=== PATIENT | female | born 1935 | race Asian ===

== ENCOUNTER 2017-07-06 09:03 | Observation (INO) | END 2017-07-07 15:40 | disposition home health service (06) ==

== ENCOUNTER 2018-04-12 07:30 | Observation (INO) | payer MEDICARE, OTHER ==
[~2018-04-12] VITALS: Ht 152.4 cm; Wt 49.9 kg
[~2018-04-12 07:30] MED LIST: ACETAMINOPHEN 500 MG TAB PO SCH; AMLO2.5T2 PO; ATOR10TA65 PO; CALC1TAB32 PO; CEFAZOLIN 1 GM/50 ML (PMX) 50 ML IVPB SCH; CHOL400T10 PO; DEXAMETHASONE 4 MG/ML 1 ML INJ IV SCH; GABA300C16 PO; HIP PAIN COCKTAIL (CEFUROXIME) INJ SCH; LACTATED RINGER'S 1,000 ML IV* SCH; LANSOPRAZOLE 30 MG CAP PO SCH; METF500T24 PO; ONDANSETRON 4 MG INJ IV SCH; TRANEXAMIC ACID 1,000 MG in NS 100 ML INTRA-OP X1 IVPB SCH; TRANEXAMIC ACID 1,000 MG in NS 100 ML PRE-OP X1 IVPB SCH; VALS160T20 PO; oxyCODONE (CR) 10 MG TAB [oxyCONTIN] PO SCH
[2018-05-03] VITALS (29 sets, daily range): BP systolic 104–159; BP diastolic 46–71; PULSE 68–96; RESP 12–18; Ht 152.4 cm; Wt 49.9 kg
[2018-05-03] MEDS ORDERED: TRANEXAMIC ACID 1,000 MG in NS 100 ML PRE-OP X1 IVPB ONE (06:00)
[2018-05-03] MEDS ORDERED: oxyCODONE (CR) 10 MG TAB [oxyCONTIN] PO ONE (06:00)
[2018-05-03] MEDS ORDERED: VANCOMYCIN 1 GM (PMX) 250 ML IVPB ONE (06:00)
[2018-05-03] MEDS ORDERED: ACETAMINOPHEN 500 MG TAB PO ONE (06:00)
[2018-05-03] MEDS ORDERED: ONDANSETRON 4 MG INJ IV ONE (06:00)
[2018-05-03] MEDS ORDERED: DEXAMETHASONE 4 MG/ML 1 ML INJ IV ONE (06:00)
[2018-05-03] MEDS ORDERED: LANSOPRAZOLE 30 MG CAP PO ONE (06:00)
[2018-05-03] MEDS ORDERED: LACTATED RINGER'S 1,000 ML IV* SCH (06:00)
[2018-05-03] MEDS ORDERED: TRANEXAMIC ACID 1,000 MG in NS 100 ML INTRA-OP X1 IVPB ONE (06:00)
[2018-05-03] MEDS ORDERED: SEVOFLURANE 15 MIN ONE (07:00)
--- NOTE | 2018-05-03 10:36 | PREAC ---
Date/Time of Note Date/Time of Note DATE: 05/03/18 TIME: 10:33 Anesthesia Eval and Record Evaluation Time Pre-Procedure Interview DATE: 05/03/18 TIME: 10:33 Age 82 Sex female NPO: 8 hrs Preoperative diagnosis Rt knee osteoarthritis Planned procedure Rt total knee replacement Past Medical History Past Medical History: Includes Cardio: HTN, Dyslipidemia Endo: Diabetes Surgery & Anesthesia Issues No known issue Meds Anticoagulation: No Beta Luis Enrique within 24 hr: No Reason Beta Luis Enrique not given: Pt. not on B-Luis Enrique Reported Medications Cholecalciferol* (Vitamin D*) 400 Unit Tablet, 400 UNIT PO DAILY, TAB 07/05/17 Calcium Carbonate/Vitamin D3 (Os-Vikash 500-Vit D3 200 Caplet) 1 Each Tablet, 1 EACH PO BID, TAB 07/05/17 Gabapentin* (Gabapentin*) 300 Mg Capsule, 300 MG PO BID, #60 CAP 07/05/17 Metformin Hcl* (Metformin Hcl*) 500 Mg Tablet, 1000 MG PO WITH BREAKFAST DINNE, #30 TAB 07/05/17 Atorvastatin Calcium (Atorvastatin Calcium) 10 Mg Tablet, 10 MG PO QHS, #30 TAB 18 Amlodipine Besylate* (Norvasc*) 2.5 Mg Tablet, 2.5 MG PO DAILY, TAB 18 Valsartan* (Diovan*) 160 Mg Tablet, 160 MG PO DAILY, TAB 07/05/17 Current Medications Lactated Ringer's 1,000 ml @ 125 mls/hr Q8H IV* ; Start 05/03/18 at 06:00; Stop 05/03/18 at 13:59 Meds reviewed: Yes Allergies Coded Allergies: Penicillins (Verified Allergy, Unknown, RASH HIVES SWELLING, 07/06/17) Allergies Reviewed: Yes Labs/Studies Labs Reviewed: Reviewed by anesthesiologist test: N/A Studies: ECG Pre-procedure Exam Last vitals BP:110/56, pulse;78, spo2;100%, T:98,8 Airway: Adequate mouth opening, Adequate thyromental dist Mallampati: Mallampati II Teeth: Normal Lung: Normal Heart: Normal ASA Physical Status ASA physical status: 3 Emergency: None Planned Anesthetic General/MAC: LMA Planned Pain Management Sub-arachniod narcotics Pre-operative Attestations Prior to commencing anesthesia and surgery, the patient was re-evaluated, there was verification of: *The patient's identity *The results of appropriate recent lab work and preoperative vital signs *The above evaluation not changing prior to induction *Anesthetic plan, risk benefits, alternative and complications discussed with patient/family; questions answered; patient/family understands, accepts and wishes to proceed. ANAMIKA CARRILLO MD May 03, 2018 10:36
[2018-05-03] MEDS ORDERED: LOSA100T3 PO (11:29)
--- NOTE | 2018-05-03 11:42 | PDOCDIS ---
Discharge Instructions DIAGNOSIS Discharge Diagnosis Right knee osteroarthritis CONDITION [id number] Patient Condition: [id number] Good HOME CARE INSTRUCTIONS: [id number] Diet Instructions: Ejusq7b Regular ACTIVITY: [id number] Activity Restrictions: [id number] Slowly Increase Activity Rest between Activity Avoid heavy lifting No Sexual Activity Do not Drive Do not operate Machinery Do not operate Power Tool Avoid Heavy Housework Keep Limb Elevated (2-3 pillows under the right foot only so that the leg is in full extension while resting. ) Weight Bearing (weight bear as tolerated with front wheeled walker) [id number] Bathing Restrictions: [id number] Shower (Prineo dressing to remain on until seen postoperatively. Okay to shower with this dressing. No bathing or submersion in water.) FOLLOW UP/APPOINTMENTS Follow-up Plan Follow up at postoperative appt. provided to you at your preoperative exam. SARA BURT PA-C May 03, 2018 11:42
--- NOTE | 2018-05-03 11:52 | HPN ---
Date/Time of Note Date/Time of Note DATE: 05/03/18 TIME: 11:52 Interval H&P Admission Note Pt. seen H&P reviewed: No system changes CAR COLINDRES MD May 03, 2018 11:52
[2018-05-03] MEDS ORDERED: POLYMYXIN B 500000 UNIT INJ ONE (11:56)
[2018-05-03] MEDS ORDERED: oxyCODONE 5 MG TAB PO PRN ×2 (12:00)
[2018-05-03] MEDS ORDERED: NALOXONE (0.4 MG/ML) INJ IV PRN (12:00)
[2018-05-03] MEDS ORDERED: BISACODYL 10 MG SUPP PR PRN (12:00)
[2018-05-03] MEDS ORDERED: MAGNESIUM HYDROXIDE 30ML CUP PO PRN (12:00)
[2018-05-03] MEDS ORDERED: NA PHOSPHATE/BIPHOS 133 ML ENEMA PR PRN (12:00)
[2018-05-03] MEDS ORDERED: ASPIRIN 81 MG TAB PO ONE (12:00)
[2018-05-03] MEDS ORDERED: DIPHENHYDRAMINE 50 MG INJ IV PRN ×2 (12:00→15:00)
[2018-05-03] MEDS ORDERED: BETHANECHOL 25 MG TAB PO PRN (12:00)
[2018-05-03] MEDS ORDERED: DOCUSATE SODIUM 100 MG CAP PO ONE (12:00)
[2018-05-03] MEDS ORDERED: NACL 0.9% 3 ML SYG IV SCH (12:00)
[2018-05-03] MEDS ORDERED: SENNA/DOCUSATE NA (8.6MG/50MG) TAB PO PRN (12:00)
[2018-05-03] MEDS ORDERED: MIDAZOLAM 1 MG/ML 2 ML INJ ONE (12:17)
[2018-05-03] MEDS ORDERED: morphine SULFATE/PF (10 MG/10 ML) INJ ONE (12:17)
[2018-05-03] MEDS ORDERED: FENTAnyl 50 MCG/ML VIAL ONE (12:18)
[2018-05-03] MEDS ORDERED: BACITRACIN 50000 UNITS INJ ONE (12:24)
[2018-05-03] MEDS ORDERED: HIP PAIN COCKTAIL VANCO INJ SCH ×7 (12:30)
[2018-05-03] MEDS ORDERED: VANCOMYCIN 1 GM (PMX) 250 ML ONE (12:52)
[2018-05-03] MEDS ORDERED: ETOMIDATE 20 MG INJ ONE (14:28)
[2018-05-03] MEDS ORDERED: LIDOCAINE 2% (SDV) 5 ML INJ ONE (14:28)
[2018-05-03] MEDS ORDERED: CEFAZOLIN 1 GM INJ ONE (14:28)
[2018-05-03] MEDS ORDERED: ONDANSETRON 4 MG INJ ONE (14:28)
--- NOTE | 2018-05-03 14:29 | SIPON ---
Date/Time of Note Date/Time of Note DATE: 05/03/18 TIME: 14:26 Operative Report Preoperative Diagnosis Right Knee Osteoarthritis Postoperative Diagnosis Same Operation/Procedure Performed Right Total Knee Arthroplasty Surgeon Gibson Colindres MD executive assistant to president Silvano Fierro Second assist: SARA BURT PA-C Anesthesia: spinal Estimated blood loss: 250 - 300 ml's Transfusion Required none Specimen Bone Grafts/Implants none Complications none GIBSON COLINDRES MD May 03, 2018 14:29
--- NOTE | 2018-05-03 14:32 | OPR ---
Date/Time of Note Date/Time of Note DATE: 05/03/18 TIME: 14:30 Operative Report Free Text/Dictation DATE OF OPERATION: May 03, 2018 SURGEON: Car Colindres MD CAN WORKER: Silvano SCHWARTZ CAN WORKER: Edin Armendariz PREOPERATIVE DIAGNOSIS: Right knee osteoarthritis. POSTOPERATIVE DIAGNOSIS: Right knee osteoarthritis. PROCEDURES PERFORMED: Right total knee arthroplasty, CPT code 21915. ANESTHESIOLOGIST: Dr. Villa ANESTHESIA: Spinal. ESTIMATED BLOOD LOSS: 300 mL. COMPLICATIONS: None. SPECIMENS: Resected bone. DISPOSITION: PACU in stable condition. TOURNIQUET TIME: 46 minutes at 250 mmHg. IMPLANT USED: Isidro and Nephew size 2 Christina tibial baseplate, size 3 narrow posterior stabilized Oxinium femur, size 10 high flexion polyethylene, size 35 mm patella. INDICATION FOR PROCEDURE: This is an 82-year-old female with end-stage osteoarthritis of the right knee who had failed nonoperative management. Risks, benefits, alternatives of surgical intervention were discussed with the patient and informed consent was obtained. The risks of surgery include but are not limited to infection, deep venous thrombosis, pulmonary embolism, damage to nerves and blood vessels, numbness around incision site, stiffness of knee, need for total knee manipulation under anesthesia, need for blood transfuion, heart attack, stroke, risks associated with anesthesia, implant loosening, wear of prosthesis, need for revision surgery, and . DESCRIPTION OF PROCEDURE: The patient was met in the preoperative suite. The correct operative site was confirmed and marked. The patient was then brought into operating room. After induction of anesthesia, the patient was placed in the supine position on the operating room table. A tourniquet was applied to right upper thigh. The right lower extremity was prepped and draped in the usual sterile fashion. Before starting, a timeout was taken to identify the correct operative site and confirm preoperative antibiotics consisting of 1 g of IV Ancef, along with 1 g of tranexamic acid were administered. At this point, the right leg was elevated and exsanguinated with an Esmarch and tourniquet was then insufflated for the above noted time. A midline incision was made and median parapatellar arthrotomy was then completed. The lateral patellar reti nacular ligaments were released. A sleeve of tissue was released from the medial proximal tibia. The cruciate ligaments and the menisci were then excised. At this point, the custom distal femur cutting block was then pinned and 9.5 mm was resected from the distal femur. The 4-in-1 cutting block, size 3 was then placed. An jeff wing was used to confirm that notching of the anterior cortex of the femur would not occur. The anterior and posterior condylar cuts were completed followed by the anterior and posterior chamfer cuts. The osteophytes were then removed with a rongeur. At this point, the tibia was subluxed anteriorly. Appropriate retractors were placed. The custom tibial cutting block was then pinned. The drop was used to ensure the correct alignment. Approximately 11 mm was resected off the lateral tibial plateau and 4 mm off the medial tibial plateau. Osteophytes were then removed. At this point, the flexion extension gaps were checked with a 9 mm gap checker bakery products and noted to be loose in both. Next, trial 3 narrow femur was then pinned and the box cut was then completed. The tibia was then subluxed anteriorly and measured to size 2. The tibial tray was then pinned and a keel was then punched. The trial components were placed with a 10 mm polyethylene and noted to have full extension and greater than 120 degrees of flexion. The patella was then subluxed laterally and sized to 20 mm. Approximately, 6 mm was resected. The patellar was sized to 35 mm. The button was placed and noted to have excellent patellar tracking. The trial components were removed. All bony surfaces were pulse lavaged and dried. The appropriate size components were then cemented and the knee was held in extension with a 10 mm trial polyethylene until the cement cured. Once the cement had cured, the trial polyethylene was removed and the appropriate size polyethylene was then placed. The tranexamic acid was redosed. The cocktail was then injected. The extensor mechanism was closed using #1 Stratafix and the subcutaneous tissue with 2-0 Vicryl and the skin with 4-0 Monocryl. Steri-Strips were applied along with a sterile dressing. There were no complications. The patient was transferred to PACU in stable condition. POSTOPERATIVE CARE: The patient will be weightbearing as tolerated. The patient will work with physical therapy, and will receive two additional doses of IV antibiotics along with aspirin 81 mg p.o. b.i.d. for 6 weeks. Upon discharge, patient will follow up in my office within 2 weeks postoperatively. CAR COLINDRES MD 2, 2019 14:32
--- NOTE | 2018-05-03 14:36 | NUR ---
RECEIVED FROM OR VIA BED S/P RT. TKR. DRESSING DRY AND INTACT. POLAR CARE APPLIED. SCD APPLIED TO BOTH LEGS. PEDAL PULSE PALPABLE FOOT. WARM TO TOUCH. NO SENSATION AT PRESENT BUT MOVEMENT NOTED ON LOWER LEGS S/P DURAMORPH 0.2MG. IV INFUSING IN RT. AC #20 ANGIOCATH
--- NOTE | 2018-05-03 14:43 | PAC ---
Date/Time of Note Date/Time of Note DATE: 05/03/18 TIME: 14:41 Post-Anesthesia Notes Post-Anesthesia Note Last documented vital signs Vital Signs Date Temp Pulse Resp B/P (MAP) Pulse Ox O2 O2 Flow FiO2 Time Delivery Rate 05/03/18 98.2 14:41 05/03/18 90 18 159/71 96 Room Air 12:09 (100) Activity: WNL Respiratory function: WNL Cardiovascular function: WNL Mental status: Baseline Pain reasonably controlled: Yes Hydration appropriate: Yes Nausea/Vomiting absent: Yes Comments BP:126/54, pulse:98, spo2:100%, T:98,9 ANAMIKA CARRILLO MD May 03, 2018 14:42
[2018-05-03] MEDS ORDERED: FENTAnyl 50 MCG/ML VIAL IV PRN (15:00)
[2018-05-03] MEDS ORDERED: ONDANSETRON 4 MG INJ IV PRN (15:00)
[2018-05-03] MEDS ORDERED: HYDROmorphONE 1 MG/5 ML IV SYRINGE IV PRN ×2 (15:00)
[2018-05-03] MEDS ORDERED: LABETALOL HCL 20MG INJ IV PRN (15:00)
[2018-05-03] MEDS ORDERED: METOCLOPRAMIDE 10 MG INJ IV PRN (15:00)
[2018-05-03] MEDS ORDERED: MEPERIDINE 25 MG INJ IV PRN (15:00)
[2018-05-03] MEDS ORDERED: hydrALAzine 20 MG INJ IV PRN (15:00)
--- NOTE | 2018-05-03 15:08 | CONS ---
Date/Time of Note Date/Time of Note DATE: 05/03/18 TIME: 15:02 Assessment/Plan Assessment/Plan Assessment/Plan Assessment and plan: 82-year-old female who comes in for right total knee replacement. # Right knee replacement: Again secondary to osteoarthritis, surgery occurred earlier today. -Continue current medications as ordered by primary team including pain control medications, physical therapy, labs #Type 2 diabetes: Monitor sugars for now, consider sliding scale insulin #Hypertension: Presently stable -Monitor, continue current medication #Pseudogout: No present issues -Monitor #Inflammatory bowel disease: Monitor for now #Gastritis: Continue PPI We will continue to follow along with you. Results 24hrs Laboratory Tests Test 05/03/18 12:19 05/03/18 14:43 Bedside Glucose 83 139 Consultation Date/Type/Reason Admit Date/Time May 03, 2018 at 11:12 Hx of Present Illness 82-year-old female past medical history of right knee also arthritis, type 2 diabetes, hypertension, esophageal candidiasis, inflammatory bowel disease, gastritis, pseudogout, history of tubular adenoma, who underwent right total knee replacement earlier today. Patient had been having pain symptoms prior to this operation in her right knee secondary to osteoarthritis. Presently is in recovery room, denies any upper or lower GI bleeding, nausea vomiting, fever chills, diarrhea constipation, chest pain or shortness of breath. Past Medical History Medications Current Medications Sodium Chloride 1,000 ml @ 80 mls/hr [id number] IV ; Start 05/03/18 at 11:42 IV Flush (NS 3 ml) 3 ml PER PROTOCOL IV ; Start 05/03/18 at 12:00 Oxycodone HCl (Roxicodone) 15 mg Q4H PRN PO PAIN; Start 05/03/18 at 12:00 Oxycodone HCl (Roxicodone) 10 mg Q4H PRN PO PAIN; Start 05/03/18 at 12:00 Oxycodone HCl (Roxicodone) 5 mg Q4H PRN PO PAIN; Start 05/03/18 at 12:00 Ondansetron HCl (Zofran Inj) 4 mg Q4H PRN IV NAUSEA AND/OR VOMITING; Start 05/04/18 at 12:00 Vancomycin HCl 250 ml @ 125 mls/hr Q24H IVPB ; Start 05/03/18 at 18:00; Stop 05/03/18 at 19:59 Celecoxib (Celebrex) 100 mg BID PO ; Start 05/04/18 at 09:00 Gabapentin (Neurontin) 300 mg BID PO ; Start 05/03/18 at 21:00 Pantoprazole (Protonix Tab) 40 mg DAILY@06 PO ; Start 05/05/18 at 06:00 Docusate Sodium (Colace) 200 mg BID PO ; Start 05/04/18 at 09:00; Stop 05/07/18 at 08:59 Simethicone (Mylicon) 80 mg TID PRN PO DISTENSION/GAS/BLOATING; Start 05/03/18 at 12:00 Senna/Docusate Sodium (Senokot-S) 2 tab BID PRN PO CONSTIPATION; Start 05/03/18 at 12:00 Magnesium Hydroxide (Milk Of Mag) 30 ml HS PRN PO CONSTIPATION; Start 05/03/18 at 12:00 Bisacodyl (Dulcolax Supp) 10 mg DAILY PRN [place] CONSTIPATION; Start 05/03/18 at 12:00 Sodium Biphosphate/ Sodium Phosphate (Fleet Enema) 133 ml DAILY PRN [place] CONSTIPATION; Start 05/03/18 at 12:00 Diphenhydramine HCl (Benadryl) 25 mg Q4H PRN IV ITCHING; Start 05/03/18 at 12:00 Naloxone HCl (Narcan) 0.2 mg Q2M PRN IV DECREASED REPIRATORY RATE; Start 05/03/18 at 12:00 Bethanechol Chloride (Urecholine) 25 mg URINARY CATH D/C PRN PO UNABLE TO VOID; Start 05/03/18 at 12:00 Aspirin (Halfprin) 81 mg BID PO ; Start 05/04/18 at 09:00 Hydromorphone HCl (Dilaudid) 0.2 mg PACU PRN IV MILD PAIN LEVEL 1-3; Start 05/03/18 at 15:00; Stop 05/03/18 at 19:00 Hydromorphone HCl (Dilaudid) 0.4 mg PACU PRN IV MODERATE PAIN LEVEL 4-6; Start 05/03/18 at 15:00; Stop 05/03/18 at 19:00 Fentanyl (Sublimaze) 25 mcg PACU ORDER PRN IV MILD PAIN LEVEL 1-3; Start 05/03/18 at 15:00; Stop 05/03/18 at 19:00 Ondansetron HCl (Zofran Inj) 4 mg PACU ORDER PRN IV NAUSEA AND/OR VOMITING; Start 05/03/18 at 15:00; Stop 05/03/18 at 19:00 Metoclopramide HCl (Reglan) 10 mg PACU ORDER PRN IV NAUSEA AND/OR VOMITING; Start 05/03/18 at 15:00; Stop 05/03/18 at 19:00 Labetalol HCl (Labetalol) 5 mg PACU ORDER PRN IV ELEVATED BLOOD PRESSURE; Start 05/03/18 at 15:00; Stop 05/03/18 at 19:00 Hydralazine HCl (Apresoline) 5 mg PACU ORDER PRN IV ELEVATED BLOOD PRESSURE; Start 05/03/18 at 15:00; Stop 05/03/18 at 19:00 Meperidine HCl (Demerol) 25 mg PACU ORDER PRN IV POST OPERATIVE SHIVERING; Start 05/03/18 at 15:00; Stop 05/03/18 at 19:00 Diphenhydramine HCl (Benadryl) 25 mg PACU ORDER PRN IV PRURITUS; Start 05/03/18 at 15:00; Stop 05/03/18 at 19:00 Allergies: Coded Allergies: Penicillins (Verified Allergy, Unknown, RASH HIVES SWELLING, 05/03/18) Past Surgical History Past Surgical Hx: noncontributory Family History Significant Family History: no pertinent family hx Social History Alcohol Use: none Drug Use: none Exam/Review of Systems Vital Signs Vitals Vital Signs Date Temp Pulse Resp B/P (MAP) Pulse Ox O2 O2 Flow FiO2 Time Delivery Rate 05/03/18 98.2 14:41 05/03/18 90 18 159/71 96 Room Air 12:09 (100) Exam General: Lying in bed, no acute distress HEENT: Pupils equal round reactive to light extraocular's are intact Neck: Supple Respiratory: Slightly distant breath sounds bilaterally Cardiovascular: S1, S2 heard, no rubs or gallops GI: Soft, nontender, nondistended, no rebound or guarding, normal bowel sounds Muscular skeletal: Decreased range of motion right lower extremity, otherwise no lower exam edema bilaterally Neurologic: No focal deficits Medications Medications Current Medications Sodium Chloride 1,000 ml @ 80 mls/hr [id number] IV ; Start 05/03/18 at 11:42 IV Flush (NS 3 ml) 3 ml PER PROTOCOL IV ; Start 05/03/18 at 12:00 Oxycodone HCl (Roxicodone) 15 mg Q4H PRN PO PAIN; Start 05/03/18 at 12:00 Oxycodone HCl (Roxicodone) 10 mg Q4H PRN PO PAIN; Start 05/03/18 at 12:00 Oxycodone HCl (Roxicodone) 5 mg Q4H PRN PO PAIN; Start 05/03/18 at 12:00 Ondansetron HCl (Zofran Inj) 4 mg Q4H PRN IV NAUSEA AND/OR VOMITING; Start 05/04/18 at 12:00 Vancomycin HCl 250 ml @ 125 mls/hr Q24H IVPB ; Start 05/03/18 at 18:00; Stop 05/03/18 at 19:59 Celecoxib (Celebrex) 100 mg BID PO ; Start 05/04/18 at 09:00 Gabapentin (Neurontin) 300 mg BID PO ; Start 05/03/18 at 21:00 Pantoprazole (Protonix Tab) 40 mg DAILY@06 PO ; Start 05/05/18 at 06:00 Docusate Sodium (Colace) 200 mg BID PO ; Start 05/04/18 at 09:00; Stop 05/07/18 at 08:59 Simethicone (Mylicon) 80 mg TID PRN PO DISTENSION/GAS/BLOATING; Start 05/03/18 at 12:00 Senna/Docusate Sodium (Senokot-S) 2 tab BID PRN PO CONSTIPATION; Start 05/03/18 at 12:00 Magnesium Hydroxide (Milk Of Mag) 30 ml HS PRN PO CONSTIPATION; Start 05/03/18 at 12:00 Bisacodyl (Dulcolax Supp) 10 mg DAILY PRN [place] CONSTIPATION; Start 05/03/18 at 12:00 Sodium Biphosphate/ Sodium Phosphate (Fleet Enema) 133 ml DAILY PRN [place] CONSTIPATION; Start 05/03/18 at 12:00 Diphenhydramine HCl (Benadryl) 25 mg Q4H PRN IV ITCHING; Start 05/03/18 at 12:00 Naloxone HCl (Narcan) 0.2 mg Q2M PRN IV DECREASED REPIRATORY RATE; Start 05/03/18 at 12:00 Bethanechol Chloride (Urecholine) 25 mg URINARY CATH D/C PRN PO UNABLE TO VOID; Start 05/03/18 at 12:00 Aspirin (Halfprin) 81 mg BID PO ; Start 05/04/18 at 09:00 Hydromorphone HCl (Dilaudid) 0.2 mg PACU PRN IV MILD PAIN LEVEL 1-3; Start 05/03/18 at 15:00; Stop 05/03/18 at 19:00 Hydromorphone HCl (Dilaudid) 0.4 mg PACU PRN IV MODERATE PAIN LEVEL 4-6; Start 05/03/18 at 15:00; Stop 05/03/18 at 19:00 Fentanyl (Sublimaze) 25 mcg PACU ORDER PRN IV MILD PAIN LEVEL 1-3; Start 05/03/18 at 15:00; Stop 05/03/18 at 19:00 Ondansetron HCl (Zofran Inj) 4 mg PACU ORDER PRN IV NAUSEA AND/OR VOMITING; Start 05/03/18 at 15:00; Stop 05/03/18 at 19:00 Metoclopramide HCl (Reglan) 10 mg PACU ORDER PRN IV NAUSEA AND/OR VOMITING; Start 05/03/18 at 15:00; Stop 05/03/18 at 19:00 Labetalol HCl (Labetalol) 5 mg PACU ORDER PRN IV ELEVATED BLOOD PRESSURE; Start 05/03/18 at 15:00; Stop 05/03/18 at 19:00 Hydralazine HCl (Apresoline) 5 mg PACU ORDER PRN IV ELEVATED BLOOD PRESSURE; Start 05/03/18 at 15:00; Stop 05/03/18 at 19:00 Meperidine HCl (Demerol) 25 mg PACU ORDER PRN IV POST OPERATIVE SHIVERING; Start 05/03/18 at 15:00; Stop 05/03/18 at 19:00 Diphenhydramine HCl (Benadryl) 25 mg PACU ORDER PRN IV PRURITUS; Start 05/03/18 at 15:00; Stop 05/03/18 at 19:00 YANNA BEAR May 03, 2018 15:08
--- NOTE | 2018-05-03 15:40 | NUR ---
PT SHAHZAD Therapy day number 1 Evaluation Start Time 15:40 Evaluation Total Time 0 min Subjective Denies pain Pain Scale NUMERIC Pain Intensity 0 (0-10) Patient Stated Goal for Pain Relief 0 (0-10) Pain Level Comment denies pain Pre Treatment Vital Signs Stable Yes Exercise Assessment Label Right Lower Extremity Exercise Type Active ROM Additional Exercise Comments per post-op TKA protocol Supine to Sit Moderate Assist Bed Mobility Sit to Supine Minimum Assist Sitting Tolerance 10 min Additional Mobility Comments unsafe to attempt standing at this time Patient uses wheelchair Not Applicable Additional Gait Comments TBA Weight Bearing Assessment Label Bilat Lower Extremity Weight Bearing Status Weight Bearing as Renee Additional Stairs Assist Comments TBA Static Sitting Balance Poor plus Dynamic Sitting Balance Poor Additional Balance Assessments Comments unsafe to attempt standing at this time Safety Judgement Fair Activity Tolerance Poor Equipment Present A pump IV pump [facility] Care Additional Equipment Present 3LO2 via NC Post Treatment Pain Intensity 0 0-10 Variance Documentation SEE PT EVAL NOTE Additional Post Treatment Comment lethargic PT Technical Record Comment PT SHAHZAD Pt is a 82 yo F with PMH of R knee OA, DMII, hypertension, esophageal candidiasis, inflammatory bowel disease, gastritis, pseudogout, history of tubular adenoma who is now S/P R TKA on 05/03/17. Pt received in recovery room. PLOF: Pt lives with in a single story home with 0STE. Pt has one step within home. Independent with mobility/ambulation, used a SPC occassionally. Pt owns a FWW but was not using it. CLOF: emergency technician cleared pt for PT evaluation. Pt received in bed, vitals assessed and stable. Pt educated in purpose of PT evaluation and agreeable. Pt with diminished sensation in R LE compared to L LE. Pt educated in and issued post-op TKA protocol exercises and performed with fair return, noted minimal R quad weakness. Mobility assessment as above, noted with static sitting pt having difficulty maintaining static sitting balance requiring modA to maintain, lethargic. Pt returned to bed, all needs in reach, no signs of distress, RN notified of pt's status. Recommendation: Pt presents S/P R TKA POD #0. Noted with assessment pt lethargic, having difficulty maintaining eyes open, unable to maintain static sitting balance without assistance. Unsafe to attempt gait at this time. Pt will benefit from additional skilled PT services during hospital stay for mobility training. D/C per MD recommendation. Pt owns FWW, may benefit from 3:1 commode. Plan: Continue c PT POC( BID x 6)
--- NOTE | 2018-05-03 15:45 | NUR ---
BROUGHT AT BEDSIDE TO VISIT. PT IN TO ASSESS.
--- NOTE | 2018-05-03 16:10 | NUR ---
REORT GIVEN TO SHAYLA MEREDITH.
--- NOTE | 2018-05-03 16:17 | NUR ---
TRANSPORTED TO , VIA BED ACCOMPANIED BY TRANSPORT IN STABLE CONDITION. DRESSING TO RT. KNEE DRY AND INTACT. POLAR CARE MAINTAINED. MOVEMENT AND SENSATION PROGRESSED TO HER TOES. SCD'S MAINTAINED. IV REMAINS PATENT. DENIES PAIN AT PRESENT.
--- NOTE | 2018-05-03 16:30 | NUR ---
RECEIVED PATIENT REPORT FROM COLL[facility] B[facility] CREASERSHAYLA DAY . RECEIVED PATIENT TO ROOM 432 AT THIS TIME.ALERT, ORIENTED. VITALS STABLE ON ADMISSION, RECEIVED S/P RIGHT TOTAL KNEE REPLACEMENT BY DR. SCRUGGS . PATIENT ADMITTED WITH [facility] . SCD'S ON. IV ON LEFT ARM IS INTACT AND IV FLUID ON FLOW. ORIENTED TO THE STAFF AND INTRODUCED CALL LIGHT SYSTEM AND EXPLAINED. RIGHT KNEE SURGICAL SITE INTACT DRESSING WITH KERLIX BANDAGING ON. NO BLEEDING OR DRAINAGE NOTED. ALL SAFETY PRECAUTIONS STARTED TO AVOID FALLS AND INJURIES SUCH BED IN THE LOWEST POSITION, ALARMS ON, BRAKES ON, CALL LIGHT WITHIN REACH. ENCOURAGED TO USE THE CALL LIGHT . WILL CONTINUE TO MONITOR.
[2018-05-03] MEDS: SOD CHLORIDE 0.9% 1,000 ML IV SCH (16:57)
[2018-05-03] MEDS ORDERED: VANCOMYCIN 1 GM (PMX) 250 ML IVPB SCH (18:00)
--- NOTE | 2018-05-03 19:00 | NUR ---
END OF SHIFT CHANGE: PATIENT COMFORTABLE. VITALS STABLE. ALL SAFETY PRECAUTION MAINTAINED , PATIENT TOLERATED WITH CLEAR LIQUIDS. NO NAUSEA VOMITING NOTED . WILL CONTINUE TO MONITOR.
--- NOTE | 2018-05-03 19:31 | NUR ---
HOSPITALIST: Informed hospitalist group re: patient's arrival to floor postop joint replacement by Dr. Sharp. Patient due to have meds reconciled. Hospitalist group notified and will address this amongst their group.
[2018-05-03] MEDS: GABAPENTIN 100 MG CAP PO SCH (20:37)
[2018-05-04 00:05] VITALS: BP 101/57; PULSE 85; RESP 18
[2018-05-04] MEDS: SOD CHLORIDE 0.9% 1,000 ML IV SCH (00:12)
[2018-05-04 04:00] VITALS: BP 98/50; PULSE 76; RESP 18
[2018-05-04 06:18] VITALS: BP 110/55; PULSE 79; RESP 18
--- NOTE | 2018-05-04 07:55 | NUR ---
OT NOTE Pt is a 82 yo F with PMH of R knee OA, DMII, hypertension, esophageal candidiasis, inflammatory bowel disease, gastritis, pseudogout, history of tubular adenoma who is now S/P R TKA . PLOF: Pt lives with in a single story home with 0STE. Pt has one step within home. Independent with ADL's. Pt was independent with mobility/ambulation, used a SPC occasionally. Pt owns a FWW and 3/1 commode CLOF: RN cleared pt for skilled OT tx. Pt received supine in bed with family members at bedside. Pt A0x4, Vitals Stable and demonstrated AROM WFL and MMT 4/5. Pt performed Supine->sit at EOB independently. Seated at EOB, OTR educated pt on WB status and introduced AE for LB dressing. Pt proceeded to xiomara socks and underwear using AE with MOD I. Pt performed STS and 3/1 commode transfer with SBA. Pt requires vc for proper hand positioning and safety as pt tends to be impulsive. Pt stood at bathroom sink with SBA while completing h/g tasks independently. Pt left seated on chair at bedside to converse with her family. RN notified. Pt will benefit from skilled OT tx 1x daily for 3-5x week to increase safety awareness, balance and independence with ADL's. Recommend d/c Home when medically cleared.
[2018-05-04 08:20] VITALS: BP 104/56; PULSE 78; RESP 18
--- NOTE | 2018-05-04 08:37 | PN ---
Date/Time of Note Date/Time of Note DATE: 05/04/18 TIME: 08:35 Assessment/Plan VTE Prophylaxis VTE Prophylaxis Intervention: ambulation, SCD's, other (Aspirin 81 mg) Lines/Catheters IV Catheter Type (from Nrsg): Peripheral IV Assessment/Plan Assessment/Plan -Pain Meds as needed -ASA for DVT Prophylaxis x 6 weeks outpatient discussed. -Continue monitoring as outpatient on discharge -Follow-up at scheduled postop outpatient appointment or sooner if there is any issue. -Patient Stable -Discharge to Home with home health Subjective 24 Hr Interval Summary 82-year-old female postop day 1 status post right total knee arthroplasty. Patient having nausea status post surgery. Vomiting. Denies any stomach pain. Denies any chest pain/tightness, shortness of breath or difficulty breathing. Has initiated physical therapy but only taking a couple of steps from the bathroom and back. Currently in seated position eating breakfast with me at 90 degrees. Pain Control: well controlled Exam/Review of Systems Vital Signs Vitals Vital Signs Date Temp Pulse Resp B/P (MAP) Pulse Ox O2 O2 Flow FiO2 Time Delivery Rate 05/04/18 98.7 79 18 110/55 97 06:18 (73) 05/03/18 Nasal 2.0 19:00 Cannula Intake and Output 05/03/18 05/03/18 05/04/18 1515:00 23:00 07:00 IntakeIntake Total 1200 ml 450 ml 800 ml OutputOutput Total 50 ml BalanceBalance 1150 ml 450 ml 800 ml Exam Free Text/Dictation -No complications with dressing intact. -4/5 Tibialis Anterior, EHL Gastrocnemius/Soleus and Peroneals -10 degree lag from full extension on active range of motion. Flexing up to 90 degrees. -Normal Sensation -Palpable DP/PT, Capillary Refill <2 secs -No Distal Edema -Negative Alek Sign/No calf pain -Toes Freely Movable Constitutional: alert, oriented, well developed Results Result Diagram: 05/04/1841905/04/18419 SARA BURT PA-C May 04, 2018 08:37
--- NOTE | 2018-05-04 08:37 | NUR ---
End of Shift Summary: S/P TKR by Dr. Alvarado on 05/03/18 Pt is A&O x4. Vital signs within normal limits. No acute changes. Respiratory and hemodynamics remain stable. Patient denies chest pain, palpitations, shortness of breath, headache, cough, or changes in bowel/bladder habits. Nicho wrap with polar care. Pt received Roxicodone for pain management. Pt had 1 episode of vomiting. Safety precautions maintained throughout the shift. Bed in lowest position and bed alarm activated. Call light within reach. Hourly rounding rendered. All needs met.
[2018-05-04] MEDS ORDERED: ASPIRIN (EC) 81 MG TAB PO SCH (09:00)
[2018-05-04] MEDS ORDERED: CALCIUM/VITAMIN D (500/200) TAB PO SCH (09:00)
[2018-05-04] MEDS ORDERED: DOCUSATE SODIUM 100 MG CAP PO SCH (09:00)
[2018-05-04] MEDS ORDERED: CELECOXIB 100 MG CAP PO SCH (09:00)
--- NOTE | 2018-05-04 09:07 | NUR ---
PT JOSÉ MIGUEL [facility] Patient: Yany Miller : 1935 Age/Sex: 82/F Unit#: [id number] Room/Bed: [facility]/A User: Camila Mascorro PTA Date: 05/04/18 09:07 Type: PT Technical Record Therapy day number 2 Subjective Current complaint of pain Pain Scale NUMERIC Pain Intensity 5 (0-10) Patient Stated Goal for Pain Relief 0 (0-10) Pain Level Comment R knee Transfer Training Start Time 08:40 Transfer Sit to Stand Ability Stand by Assist Transfer Training End Time 08:50 Total Transfer Training Time 10 min (8-127) Patient uses wheelchair Not Applicable Gait Training Start Time 08:50 Gait Assist Levels Stand by Assist Assistive Devices Front Wheel Walker Ambulation Distance 250 feet Additional Gait Comments antalgic gait, decreased step length/stride, VC for posture and AD mgmt Gait Training End Time 09:07 Total Gait Training Treatment Time 17 min (8-127) Weight Bearing Assessment Label Bilat Lower Extremity Weight Bearing Status Weight Bearing as Renee Additional Stairs Assist Comments TBA Static Sitting Balance Good Dynamic Sitting Balance Good Standing Static Balance Good Dynamic Standing Balance Fair plus Additional Balance Assessments Comments FWW Safety Judgement Good Activity Tolerance Good Equipment Present A pump Post Treatment Pain Intensity 0 0-10 Variance Documentation See note Total Treament Time 27 min (8-127) Total Minutes 27 Total Units 2 PT Technical Record Comment S: SHAYLA Montenegro cleared pt for PT. Pt c/o 5/10 R knee pain and was premedicated. Agreeable to tx O: Received pt sitting on bedside chair w/ family present in room. SBA sit to stand and gait training. Gait training x 250' and presented with antalgic gait and decreased step length/stride. VC for posture and safety to ambulate within FWW. Returned pt back to room. Requested to be seated on bedside chair. Call light/phone within reach. Needs met. Left pt w/ family present in room A: Good tolerance to tx. Tolerated gait w/ 5/10 R knee pain, no LOB/buckling, and no c/o dizziness P: Continue w/ POC and progress as tolerated. Will benefit from afternoon session to perform stair training as pt has 1 step in house prior to d/c.
[2018-05-04] MEDS: GABAPENTIN 100 MG CAP PO SCH (09:48)
--- NOTE | 2018-05-04 09:55 | CONS ---
Date/Time of Note Date/Time of Note DATE: 05/04/18 TIME: 09:53 Consult Date/Type/Reason Admit Date/Time May 03, 2018 at 11:12 Initial Consult Date Subjective Seen by orthopedic surgery and physical therapy teams this morning. No current complaints. Objective Vital Signs Date Temp Pulse Resp B/P (MAP) Pulse Ox O2 O2 Flow FiO2 Time Delivery Rate 05/04/18 98.7 79 18 110/55 97 06:18 (73) 05/03/18 Nasal 2.0 19:00 Cannula Intake and Output 05/03/18 05/03/18 05/04/18 1515:00 23:00 07:00 IntakeIntake Total 1200 ml 450 ml 800 ml OutputOutput Total 50 ml BalanceBalance 1150 ml 450 ml 800 ml Exam General: Lying in bed, no acute distress HEENT: Pupils equal round reactive to light extraocular's are intact Neck: Supple Respiratory: Slightly distant breath sounds bilaterally Cardiovascular: S1, S2 heard, no rubs or gallops GI: Soft, nontender, nondistended, no rebound or guarding, normal bowel sounds Muscular skeletal: Decreased range of motion right lower extremity, otherwise no lower exam edema bilaterally Neurologic: No focal deficits Results/Medications Result Diagram: 05/04/18 0420 05/04/18 0420 Results 24 hrs Laboratory Tests Test 05/03/18 12:19 05/03/18 14:43 05/04/18 04:20 05/04/18 07:02 Bedside Glucose 83 139 White Blood Count 9.9 Red Blood Count 3.15 L Hemoglobin 8.7 L Hematocrit 26.5 L Mean Corpuscular 84.1 Volume Mean Corpuscular 27.6 L Hemoglobin Mean Corpuscular 32.8 Hemoglobin Concent Red Cell Distribution 17.0 #H Width Platelet Count 217 Mean Platelet Volume 9.8 Immature Granulocytes 0.600 H % Neutrophils % 79.2 H Lymphocytes % 10.1 L Monocytes % 9.9 Eosinophils % 0.0 Basophils % 0.2 Nucleated Red Blood 0.0 Cells % Immature Granulocytes 0.060 H # Neutrophils # 7.8 H Lymphocytes # 1.0 Monocytes # 1.0 H Eosinophils # 0.0 Basophils # 0.0 Nucleated Red Blood 0.0 Cells # Sodium Level 142 Potassium Level 4.4 Chloride Level 109 Carbon Dioxide Level 23 Anion Gap 10 Blood Urea Nitrogen 18 Creatinine 0.68 Est Glomerular Filtrat Rate mL/min Glucose Level 126 Calcium Level 8.0 L Lab Scanned Report REFERENCE LAB Medications Current Medications Sodium Chloride 1,000 ml @ 80 mls/hr [id number] IV Last administered on 05/03/18at 16:57; Admin Dose 80 MLS/HR; Start 05/03/18 at 11:42 IV Flush (NS 3 ml) 3 ml PER PROTOCOL IV ; Start 05/03/18 at 12:00 Oxycodone HCl (Roxicodone) 15 mg Q4H PRN PO PAIN; Start 05/03/18 at 12:00 Oxycodone HCl (Roxicodone) 10 mg Q4H PRN PO PAIN Last administered on 05/04/18at 06:19; Admin Dose 10 MG; Start 05/03/18 at 12:00 Oxycodone HCl (Roxicodone) 5 mg Q4H PRN PO PAIN Last administered on 05/03/18at 20:37; Admin Dose 5 MG; Start 05/03/18 at 12:00 Ondansetron HCl (Zofran Inj) 4 mg Q4H PRN IV NAUSEA AND/OR VOMITING; Start 05/04/18 at 12:00 Celecoxib (Celebrex) 100 mg BID PO Last administered on 05/04/18at 09:49; Admin Dose 100 MG; Start 05/04/18 at 09:00 Gabapentin (Neurontin) 300 mg BID PO Last administered on 05/04/18at 09:48; Admin Dose 300 MG; Start 05/03/18 at 21:00 Pantoprazole (Protonix Tab) 40 mg DAILY@06 PO ; Start 05/05/18 at 06:00 Docusate Sodium (Colace) 200 mg BID PO Last administered on 05/04/18at 09:49; Admin Dose 200 MG; Start 05/04/18 at 09:00; Stop 05/07/18 at 08:59 Simethicone (Mylicon) 80 mg TID PRN PO DISTENSION/GAS/BLOATING; Start 05/03/18 at 12:00 Senna/Docusate Sodium (Senokot-S) 2 tab BID PRN PO CONSTIPATION; Start 05/03/18 at 12:00 Magnesium Hydroxide (Milk Of Mag) 30 ml HS PRN PO CONSTIPATION; Start 05/03/18 at 12:00 Bisacodyl (Dulcolax Supp) 10 mg DAILY PRN RI CONSTIPATION; Start 05/03/18 at 12:00 Sodium Biphosphate/ Sodium Phosphate (Fleet Enema) 133 ml DAILY PRN RI CONSTIPATION; Start 05/03/18 at 12:00 Diphenhydramine HCl (Benadryl) 25 mg Q4H PRN IV ITCHING; Start 05/03/18 at 12:00 Naloxone HCl (Narcan) 0.2 mg Q2M PRN IV DECREASED REPIRATORY RATE; Start 05/03/18 at 12:00 Bethanechol Chloride (Urecholine) 25 mg URINARY CATH D/C PRN PO UNABLE TO VOID; Start 05/03/18 at 12:00 Aspirin (Halfprin) 81 mg BID PO Last administered on 05/04/18at 09:49; Admin Dose 81 MG; Start 05/04/18 at 09:00 Atorvastatin Calcium (Lipitor) 10 mg QHS PO ; Start 05/04/18 at 21:00 Calcium/Vitamin D (Oyster Shell/ Vit-D (500/200)) 1 tab BID PO Last administered on 05/04/18at 09:49; Admin Dose 1 TAB; Start 05/04/18 at 09:00 Assessment/Plan Chief Complaint/Hosp Course Assessment and plan: 82-year-old female who comes in for right total knee replac ement. # Right knee replacement: Again secondary to osteoarthritis, surgery postop day #1. -Continue current medications as ordered by primary team including pain control medications, physical therapy, labs #Type 2 diabetes: Monitor sugars for now, consider sliding scale insulin #Hypertension: Presently stable -Monitor, continue current medication #Pseudogout: No present issues -Monitor #Inflammatory bowel disease: Monitor for now #Gastritis: Continue PPI We will continue to follow along with you. YANNA BEAR May 04, 2018 09:55
[2018-05-04] MEDS: oxyCODONE 5 MG TAB PO PRN ×2 (10:42→15:31)
[2018-05-04] MEDS ORDERED: ONDANSETRON 4 MG INJ IV PRN (12:00)
--- NOTE | 2018-05-04 14:00 | NUR ---
PT JOSÉ MIGUEL [facility] Patient: Yany Miller : 1935 Age/Sex: 82/F Unit#: [id number] Room/Bed: [facility]/A User: Camila Mascorro PTA Date: 05/04/18 14:00 Type: PT Technical Record Therapy day number 2 Subjective Current complaint of pain Pain Scale NUMERIC Pain Intensity 5 (0-10) Patient Stated Goal for Pain Relief 0 (0-10) Pain Level Comment R knee Transfer Training Start Time 13:20 Transfer Sit to Stand Ability Stand by Assist Transfer Training End Time 13:30 Total Transfer Training Time 10 min (8-127) Patient uses wheelchair Not Applicable Gait Training Start Time 13:30 Gait Assist Levels Stand by Assist Assistive Devices Front Wheel Walker Ambulation Distance 300 feet Additional Gait Comments antalgic gait, decreased step length/stride Gait Training End Time 14:00 Total Gait Training Treatment Time 30 min (8-127) Weight Bearing Assessment Label Bilat Lower Extremity Weight Bearing Status Full Weight Bearing Stair Climbing Ability Contact Guard Assist Number of Stairs 1 Stairs Additional Stairs Assist Comments x2 asc/desc w/ FWW. Static Sitting Balance Good Dynamic Sitting Balance Good Standing Static Balance Good Dynamic Standing Balance Good Additional Balance Assessments Comments FWW Safety Judgement Good Activity Tolerance Good Equipment Present A pump Post Treatment Pain Intensity 5 0-10 Variance Documentation See note Total Treament Time 40 min (8-127) Total Minutes 40 Total Units 3 PT Technical Record Comment S: RN Lan cleared pt for PT. Pt c/o 5/10 R knee pain and was premedicated. Agreeable to tx O: Received pt sitting on bedside chair w/ family present in room. See above for assist levels. Gait training x 300' and presented with antalgic gait and decreased step length/stride. No LOB/buckling and no rest breaks. Performed stair training x 1 steps x2 asc/desc w/ use of FWW. Instructed pt on sequencing, fair return. Returned pt back to room. Pt had one episode of vomiting. Informed RN. Requested to be seated on bedside chair. Call light/phone within reach. Needs met. Left pt w/ family present in room A: Good tolerance to tx. Improved gait distance. Pt slightly impulsive P: Continue w POC and progress as tolerated
--- NOTE | 2018-05-04 15:45 | NUR ---
ILEANA NOTES: MET WITH THE PT AT THE BEDSIDE. PT IS A 82 YRS OLD FEMALE WITH ADMITTING DX OF RT KNEE OSTOARTHRITIS. PT USED A FWW AND SHOWER CHAIR AT HOME. PT HAD PREVIOUS HOME HEALTH BUT DOES NOT REMEMBER WHICH HH. WILL PROVIDE THE INFORMATION. WILL FOLLOW UP. NEL BARNES CM [id number] Addendum: 05/05/18 at 1552 by NEL LUKE CM Amended: Links added.
--- NOTE | 2018-05-04 17:50 | NUR ---
RN NOTE: PATIENT STABLE FOR DISCHARGE, NO C/O PAIN AT THIS TIME, DRESSING AT RIGHT KNEE C/D/I, NO DRAINAGE NOTED AT THIS TIME, WITH MEPELEX IN PLACE, ALL INSTRUCTIONS, PHS, TEACHING AND PRESCRIPTION FOR HOME GIVEN, PATIENT AND HER FAMILY VERBALIZED UNDERSTANDING. PATIENT DISCHARGED VIA WHEELCHAIR BY JALYN MILES.
[2018-05-04] MEDS ORDERED: ATORVASTATIN 10 MG TAB PO SCH (21:00)
[2018-05-05] MEDS ORDERED: PANTOPRAZOLE (EC) 40 MG TAB PO SCH (06:00)
--- NOTE | 2018-05-05 08:37 | DS ---
Date/Time of Note Date/Time of Note DATE: 05/05/18 TIME: 08:35 Discharge Summary Admission/Discharge Info Admit Date/Time May 03, 2018 at 11:12 Discharge Date/Time May 04, 2018 at 17:45 Discharge Diagnosis Right knee osteroarthritis Patient Condition: Good Hospital Course On the day of admission, the patient underwent right total knee arthroplasty Intraoperative complications: None Postoperative complications: None The patient was given prophylactic antibiotics and anticoagulants. On the day of surgery and first postoperative day patient was started on gait training and was taught usual restrictions following knee replacement On postoperative day 1 dressing was clean dry and intact. No complications were observed. On the day of discharge, the wound was clean and healing well; there was no sign of infection. Wound care instructions were discussed with the patient. Discharge Temperature: 97.6 degrees Discharge White Blood Cell Count: 9.9 Discharge Hemoglobin: 8.7 The patient was discharged home with home health. Arrangements were made for visiting nurses and home health/physical therapy. The patient will be seen in office at scheduled postoperative evaluation date given on their preoperative exam. Should patient complain of any problems prior to scheduled postoperative evaluation date, they may call into outpatient clinic to determine if they need to be scheduled at sooner appointment to be seen immediately if needed. Discharge medications: As per medication reconciliation form Diet: Same as preadmission diet. This is Sara Orozco PA-C dictating discharge summary for Dr. Chaz Alvarado. Home Meds Reported Medications Losartan Potassium* (Cozaar*) 100 Mg Tablet, 100 MG PO DAILY, #30 TAB 05/03/18 Calcium Carbonate/Vitamin D3 (Os-Vikash 500-Vit D3 200 Caplet) 1 Each Tablet, 1 EACH PO BID, TAB 07/05/17 Gabapentin* (Gabapentin*) 300 Mg Capsule, 300 MG PO BID, #60 CAP 07/05/17 Metformin Hcl* (Metformin Hcl*) 500 Mg Tablet, 1000 MG PO WITH BREAKFAST DINNE, #30 TAB 07/05/17 Atorvastatin Calcium (Atorvastatin Calcium) 10 Mg Tablet, 10 MG PO QHS, #30 TAB 07/05/17 Amlodipine Besylate* (Norvasc*) 2.5 Mg Tablet, 2.5 MG PO DAILY, TAB 07/05/17 Discontinued Reported Medications Cholecalciferol* (Vitamin D*) 400 Unit Tablet, 400 UNIT PO DAILY, TAB 07/05/17 Valsartan* (Diovan*) 160 Mg Tablet, 160 MG PO DAILY, TAB 07/05/17 Follow-up Plan Follow up at postoperative appt. provided to you at your preoperative exam. Primary Care Provider Not On Staff Doctor SARA BURT PA-C May 05, 2018 08:36
--- NOTE | 2018-05-05 15:52 | NUR ---
-CM NOTES: S/W THE DAUGHTER ZEKE [phone] ABOUT THE HOME HEALTH. PER THE DAUGHTER, LAST ADMISSION, PT STAYED WITH HER IN [place] AND [facility] WAS THE HH BUT CANNOT SERVICE THE PT THIS TIME DUE TO PT'S ADDRESS: [id number] [place] [address] AND PT DOES NOT STAY WITH HER THIS TIME. PT WENT HOME. HOWEVER, PT'S DAUGHTER INDICATED THERE WERE PREVIOUS HH IN PT'S AREA AND SHE AGREED TO CALL THIS CM BACK WITH THE INFORMATION SO THAT THIS CM CAN FINISH THE REFERRAL. THIS CM WILL FOLLOW UP AGAIN WITH HER AT 4:30PM REGARDING THE HOME HEALTH. NEL LUKE LEAD CM [phone]
== END 2018-05-04 17:45 | disposition home health service (06) ==
LOC: INTOOBSV 05-03 11:12 → REC 05-03 11:12 → MS1 05-03 16:14
PROVIDERS: ADMIT Orthopaedic Surgery Adult Reconstructive Orthopaedic Surgery; ATTEND Orthopaedic Surgery Adult Reconstructive Orthopaedic Surgery
DX: M17.11 Unilateral primary osteoarthritis, right knee (principal); E11.9 Type 2 diabetes mellitus without complications; I10 Essential (primary) hypertension; M11.20 Other chondrocalcinosis, unspecified site; K29.70 Gastritis, unspecified, without bleeding
CPT/HCPCS: 27447; 73560; 80048; 82962; 85025; 88304; 88311; 97116; 97161; 97167; 97530; C1713; C1776; G0378; J0171; J0690; J0735; J1100; J1885; J2250; J2274; J2405; J2795; J3010; J3370; J7030; 99217

== ENCOUNTER 2018-05-02 14:42 | Emergency (ER) | payer MEDICARE, OTHER ==
[~2018-05-02] VITALS: Wt 54.5 kg
[~2018-05-02 14:42] MED LIST changes: -ACETAMINOPHEN 500 MG TAB PO SCH; -CEFAZOLIN 1 GM/50 ML (PMX) 50 ML IVPB SCH; -DEXAMETHASONE 4 MG/ML 1 ML INJ IV SCH; -HIP PAIN COCKTAIL (CEFUROXIME) INJ SCH; -LACTATED RINGER'S 1,000 ML IV* SCH; -LANSOPRAZOLE 30 MG CAP PO SCH; -ONDANSETRON 4 MG INJ IV SCH; -TRANEXAMIC ACID 1,000 MG in NS 100 ML INTRA-OP X1 IVPB SCH; -TRANEXAMIC ACID 1,000 MG in NS 100 ML PRE-OP X1 IVPB SCH; -oxyCODONE (CR) 10 MG TAB [oxyCONTIN] PO SCH
[2018-05-02 14:44] VITALS: BP 169/70; PULSE 87; RESP 20
[2018-05-03] MEDS ORDERED: LOSA100T3 PO (11:29)
== END 2018-05-02 15:36 | disposition left against medical advice (07) ==
LOC: FTE 14:42
DX: Z53.21 Procedure and treatment not carried out due to patient leaving prior to being seen by health care provider (principal)